=== PATIENT | female | born 1990 | race Caucasian/White ===

== ENCOUNTER → 2020-05-05 | Outpatient (REF) | payer OTHER ==
[~2020-05-05] MED LIST: ACET500T15 PO; COLA100C5 PO; IBUP-1114 PO; PRENTAB7 PO; ZOFR4TAB16 PO
== END ==
LOC: M LAB REF 12:37 → M LABDRWAD 12:37
PROVIDERS: ATTEND Physician Assistant
DX: N39.0 Urinary tract infection, site not specified (principal)

== ENCOUNTER 2020-05-17 11:52 | Emergency (ER) | payer OTHER ==
[~2020-05-17] VITALS: Ht 154.9 cm; Wt 41.4 kg
--- OUTSIDE RECORDS SUMMARY | 2020-05-17 12:02 | CCD | Continuity of Care Document ---
Author Author Ebony LAWSON Organization Unknown Address [address] [place] [address] [place] [address] Phone [phone] Care Team Providers Care Welder First Class Name Role Phone No PCP AUTM Unavailable Problems Description No Information Available Social History Type Date Description Comments Sex Unknown ETOH Use Rarely consumes alcohol Tobacco Use Start: Unknown Patient is a current smoker, smo kes every day Smoking Status Reviewed: 04/22/19 Patient is a current smoker, smokes every day Allergies, Adverse Reactions, Alerts Description No Known Drug Allergies Medications Active Medications SIG Qnty Indications Ordering Provide r Date Macrobid 100mg Capsules 1 cap by mouth twice a day for 5 days with food 10caps N39.0 Patel blackman JR., M.D. 05/05/2020 Immunizations Description No Information Available Vital Signs Date Vital Result Comment 05/05/2020 10:47am BP Systolic 110 mmHg BP Diastolic 70 mmHg Heart Rate 78 /min Respiratory Rate 16 /min O2 % BldC Oximetry 99 % Body Temperature 98.6 F Weight 105.00 lb Height 61 inches 5'1" BMI (Body Mass Index) 19.8 kg/m2 Pain Level 2 04/22/2019 12:00pm BP Systolic 100 mmHg BP Diastolic 69 mmHg Heart Rate 83 /min Respiratory Rate 12 /min O2 % BldC Oximetry 98 % Body Temperature 98.6 F Weight 108.00 lb Height 61 inches 5'1" BMI (Body Mass Index) 20.4 kg/m2 Pain Level 1 Results Test Acquired Date Facility Test Result H/L Range Note Laboratory test finding 05/05/2020 [facility] [address] [place], [place] [id number] [phone] Urine Culture <pending> Procedures Description No Information Available Medical Devices Description No Information Available Encounters Type Date Location Provider Dx Diagnosis Office Visit 05/05/2020 9:30a [facility] Omi Luciano. R10.9 Unspecified abdominal pain Z33.1 state, incidental N39.0 Urinary tract infection, sit e not specified Assessments Date Code Description Provider 05/05/2020 R10.9 Unspecified abdominal pain Moreno Lawson P.ADon 05/05/2020 Z33.1 state, incidental Moreno Lawson P.A. 05/05/2020 N39.0 Urinary tract infection, site no t specified Omi Luciano.Darell Plan of Treatment 05/05/2020 - Omi Luciano.A.* R10.9 Unspecified abdominal pain* New Labs:* HCG, Serum Quantitative, Ordered: 05/05/20 * Comments:* will treat possible UTI with macrobidsent for C&S pain is mild and intermittentconsistent with previous pregnancyI strongly recommend she report to ED for any new, worsneing or concerning abodminal pain while being Patient voiced understanding and agrees to treatment plan She should call and establish with OB * Z33.1 state, incidental* Comments:* given history of previous pregnancies with menses, will check quant. hcg today and notify of results * N39.0 Urinary tract infection, site not specified* New Medication:* Macrobid 100 mg - 1 cap by mouth twice a day for 5 days with food * Comments:* Supportive careIncrease fluidsUrine sent for C&S - will call as neededFollow with PCP Functional Status Description No Information Available Mental Status Description No Information Available Referrals Description No Information Available
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
--- OUTSIDE RECORDS SUMMARY | 2020-05-17 12:02 | CCD | Continuity of Care Document ---
Author Author Ebony LAWSON Organization Unknown Address [address] [place] [address] [place] [address] Phone [phone] Care Team Providers Care Elevator Worker Name Role Phone No PCP AUTM Unavailable [...] H/L Range Note Laboratory test finding 05/05/2020 [facility] [address] [place], [place] [id number] [phone] Urine Culture <pending> Procedures Description No Information [...]
--- OUTSIDE RECORDS SUMMARY | 2020-05-17 12:02 | CCD | Continuity of Care Document ---
Author Author Ebony LAWSON Organization Unknown Address [address] [place] [address] [place] [address] Phone [phone] Care Team Providers Care Personal Fitness Manager Name Role Phone No PCP AUTM Unavailable [...] H/L Range Note Laboratory test finding 05/05/2020 [facility] [address] [place] [address] [phone] Urine Culture FULL REPORT IN L <SEE NOTE> Normal 1 HCG, Serum Quantitative 3030 MIU/ML Normal 2 1 FULL REPORT IN LAB NOTES ( W and [facility]). NO GROWTH CLINICAL SIGNIFICANCE 1 ORGANISM 2 GESTATIONAL AGE APPROXIMATE HCG RANGE (MIU/ML) - [...] monitoring the treatment of cancer patients. Siemens Coinfloor methodology. Procedures Description No Information Available Medical Devices Description No Information Available Encounters Type Date Location Provider Dx Diagnosis Office Visit 05/05/2020 9:30a [facility] Omi Luciano R10.9 Unspecified abdominal pain Z33.1 state, incidental N39.0 Urinary tract infection, sit e not specified Assessments Date Code Description Provider 05/05/2020 R10.9 Unspecified abdominal pain Henrik Maldonado 05/05/2020 Z33.1 state, incidental Omi Maldonado.A. 05/05/2020 N39.0 Urinary tract infection, site no t specified Henrik Luciano Plan of Treatment 05/05/2020 - Henrik Luciano* R10.9 Unspecified abdominal pain* New Labs:* HCG, [...]
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
[2020-05-17] MEDS ORDERED: NS 1,000 ML IV ONE (13:45)
[2020-05-17] MEDS ORDERED: ONDANSETRON 4MG/2ML VIAL IV ONE (13:45)
[2020-05-17 14:00] LABS: BASO # 0.1 10^3/uL (0.0-0.2); BASO % 0.5 % (0.0-1.0); EOS % 0.3 % (0.0-3.0); HEMATOCRIT 38.5 % (36.0-47.0); HEMOGLOBIN 12.9 g/dl (12.0-15.5); LYMPH # 1.3 10^3/uL (1.5-5.0); MEAN CORPUSCULAR HEMOGLOBIN 31.2 pg (27.0-33.0); MEAN CORPUSCULAR HGB CONC 33.5 g/dl (32.0-36.5); MONO # 0.7 10^3/uL (0.0-0.8); MONO % 6.1 % (0.0-5.0); NEUTROPHILS # 9.5 10^3/uL (1.5-8.5); NEUTROPHILS % 81.8 % (36.0-66.0); PLATELET COUNT, AUTOMATED 291 10^3/uL (150-450); RED BLOOD COUNT 4.14 10^6/uL (4.00-5.40); WHITE BLOOD COUNT 11.6 10^3/uL (4.0-10.0)
--- NOTE | 2020-05-17 14:09 | REP ---
INDICATION: cramping LMP 04/04. COMPARISON: None. TECHNIQUE: Transabdominal scanning. FINDINGS: Scanning demonstrates a single living intrauterine gestation in a free-floating lie. The crown-rump length of the embryonic pole is 4 mm. This corresponds with a gestational age estimate is 6 weeks 1 day. heart rate is recorded at 126 beats per minute. There is a 2.8 cm cystic area in the maternal left ovary consistent with corpus luteum. A normal appearing yolk sac is visible. IMPRESSION: Viable single intrauterine gestation at 6 weeks 1 day by crown-rump length. ABDI by sonography 09 January 2021. No complication is seen. <Electronically signed by Jeancarlos Carey > 05/17/20 [id number]
[2020-05-17 14:46] LABS: BLOOD UREA NITROGEN 9 MG/DL (7-18); CALCIUM LEVEL 9.7 MG/DL (8.5-10.1); CARBON DIOXIDE LEVEL 26 MEQ/L (21-32); CHLORIDE LEVEL 102 MEQ/L (98-107); CREATININE FOR GFR 0.58 MG/DL (0.55-1.30); GLOMERULAR FILTRATION RATE > 60.0 (>60); GLUCOSE, FASTING 81 MG/DL (70-100); HCG, SERUM QUANTITATIVE 64608 MIU/ML; POTASSIUM SERUM 3.9 MEQ/L (3.5-5.1); SODIUM LEVEL 135 MEQ/L (136-145)
[2020-05-17] MEDS ORDERED: UNIS25TA3 PO (15:45)
[2020-05-17] MEDS ORDERED: PYRI25TA2 PO (15:45)
[2020-05-17] MEDS ORDERED: ONDA4TAB6 PO (15:45)
[2020-05-17 15:54] VITALS: BP 133/77
== END 2020-05-17 16:06 | disposition home or self-care (01) ==
LOC: M ED 11:52
DX: O21.1 Hyperemesis gravidarum with metabolic disturbance (principal); O99.331 Smoking (tobacco) complicating pregnancy, first trimester; Z3A.01 Less than 8 weeks gestation of pregnancy; Z91.040 Latex allergy status
CPT/HCPCS: 76801; 80048; 81001; 84702; 85025; 86901; 93976; 96361; 96374; 99284; J2405

== ENCOUNTER → 2020-06-06 | Outpatient (REF) | payer OTHER ==
[~2020-06-06] MED LIST changes: +ONDA4TAB6 PO; +PYRI25TA2 PO; +UNIS25TA3 PO
[2020-06-06 13:32] LABS: HEMATOCRIT 34.8 % (36.0-47.0); HEMOGLOBIN 11.1 g/dl (12.0-15.5); MEAN CORPUSCULAR HEMOGLOBIN 30.4 pg (27.0-33.0); MEAN CORPUSCULAR HGB CONC 31.9 g/dl (32.0-36.5); MEAN CORPUSCULAR VOLUME 95.3 fl (80.0-96.0); PLATELET COUNT, AUTOMATED 285 10^3/uL (150-450); RED BLOOD COUNT 3.65 10^6/uL (4.00-5.40); WHITE BLOOD COUNT 11.9 10^3/uL (4.0-10.0)
[2020-06-06 14:48] LABS: HEPATITIS C VIRUS ABY INDEX 0.1 INDEX (<0.8)
[2020-06-06 14:49] LABS: HIV 1&2 SCREEN CENTAUR NEGATIVE (NEGATIVE)
[2020-06-06 15:46] LABS: CHLAMYDIA DNA AMPLIFICATION NEGATIVE (NEGATIVE); GC DNA AMPLIFICATION NEGATIVE (NEGATIVE)
== END ==
LOC: M PLALAB 11:14
PROVIDERS: ATTEND Advanced Practice Midwife
DX: O21.0 Mild hyperemesis gravidarum (principal); Z3A.09 9 weeks gestation of pregnancy

== ENCOUNTER → 2020-08-31 | Outpatient (CLI) | payer OTHER ==
--- NOTE | 2020-08-31 15:52 | REP ---
INDICATION: ANATOMY COMPARISON: 05/17/2020 TECHNIQUE: Transabdominal obstetrical ultrasound with color Doppler evaluation. FINDINGS: Examination demonstrates a single live intrauterine in variable presentation. motion is identified by technologist. Placenta is noted anterior and grade 1 without evidence for placenta previa or abruption. Amniotic fluid volume is normal. Cervix measures 3.7 cm in length and appears closed.. Gestational age by LMP and 1st U/S 21 weeks 2 days with ABDI 01/09/2021. Gestational age by current measurements 21 weeks 3 days with ABDI 01/08/2021. FHR equals 149 beats per minute. Estimated weight 425 grams (53rdpercentile). Anatomical assessment demonstrates normal structures including cranium, choroid plexus, cavum, cerebellum/posterior fossa, facial features, lungs, four-chamber heart/ventricular outflow tracts, diaphragm, stomach, cord insertion/three-vessel cord, kidneys/bladder, spine, and extremities. IMPRESSION: Single live intrauterine in variable presentation demonstrating appropriate estimated weight. Anatomical assessment is complete and normal. No gross abnormalities are identified. <Electronically signed by Eagle Funes > 08/31/20 [id number]
== END ==
LOC: M WHC 12:43
PROVIDERS: ATTEND Advanced Practice Midwife
DX: Z34.82 Encounter for supervision of other normal pregnancy, second trimester (principal)

== ENCOUNTER → 2020-10-06 | Outpatient (CLI) | payer OTHER ==
[2020-10-06 12:42] LABS: HEMATOCRIT 35.9 % (36.0-47.0); HEMOGLOBIN 11.8 g/dl (12.0-15.5); MEAN CORPUSCULAR HGB CONC 32.9 g/dl (32.0-36.5); MEAN CORPUSCULAR VOLUME 97.3 fl (80.0-96.0); PLATELET COUNT, AUTOMATED 274 10^3/uL (150-450); RED BLOOD COUNT 3.69 10^6/uL (4.00-5.40); WHITE BLOOD COUNT 13.9 10^3/uL (4.0-10.0)
== END ==
LOC: M LAB 10:42
PROVIDERS: ATTEND Advanced Practice Midwife
DX: Z34.92 Encounter for supervision of normal pregnancy, unspecified, second trimester (principal)

== ENCOUNTER 2020-10-26 04:23 | Outpatient (CLI) | payer OTHER ==
[~2020-10-26] VITALS: Ht 154.9 cm; Wt 49.5 kg
[2020-10-26] VITALS (11 sets, daily range): BP systolic 112–142; BP diastolic 61–74
[2020-10-26] MEDS ORDERED: LR 1,000 ML IV SCH (05:10)
[2020-10-26] MEDS ORDERED: LACTATED RINGER'S 1000 ML IV ONE (05:10)
[2020-10-26 05:31] LABS: APPEARANCE, URINE CLEAR (CLEAR); BACTERIA, URINE AUTO NEGATIVE (NEGATIVE); BILIRUBIN, URINE AUTO NEGATIVE (NEGATIVE); BLOOD, URINE BLOOD 1+ (NEGATIVE); COLOR, URINE YELLOW (YELLOW); GLUCOSE, URINE (UA) AUTO NEGATIVE (NEGATIVE); KETONE, URINE AUTO 1+ mg/dL (NEGATIVE); LEUKOCYTE ESTERASE, URINE AUTO NEGATIVE (NEGATIVE); NITRITE, URINE AUTO NEGATIVE (NEGATIVE); PROTEIN, URINE AUTO NEGATIVE (NEGATIVE); RBC, URINE AUTO 4 /HPF (0-3); SPECIFIC GRAVITY URINE AUTO 1.015 (1.002-1.035); SQUAMOUS EPITHELIAL CELL UR AU 1 /HPF (0-6); UROBILINOGEN, URINE AUTO 0.2 mg/dL (0.0-2.0); WBC, URINE AUTO 1 /HPF (0-3)
[2020-10-26] MEDS ORDERED: TERBUTALINE SULFATE 1 MG/ML VIAL (J3105) SC STA ×2 (05:59→07:45)
[2020-10-26] MEDS ORDERED: ONDANSETRON 4MG/2ML VIAL IV PRN (07:45)
[2020-10-26] MEDS ORDERED: PERCOCET 5MG/325MG TAB PO ONE (08:40)
--- NOTE | 2020-10-26 09:56 | IPN ---
PROGRESS NOTE DATE: 10/26/2020 SUBJECTIVE: Ebony is a 30-year-old 2 para 1-0-0-1, 29 and 2 weeks gestation, EDC of 01/09/2021 based on last menstrual period and confirmed by first trimester ultrasound. She presents to Labor and Delivery today with a report of contractions since approximately 10 a.m. on 10/25/2020. She denies vaginal bleeding and leakage of fluid. The fetus has been active. Her care was [facility] at [facility] in the first trimester. course complicated by early hyperemesis, tobacco use at a half pack per day. OBSTETRIC HISTORY: December 2017; 39 weeks gestation, 6 pound, 5 ounce female, vaginal delivery, uncomplicated. OBSTETRIC LABS: Her obstetric labs have been normal. Antibody screen is negative. Blood type is A positive. Gonorrhea and chlamydia are negative. GDS 70. Rubella immune. Hepatitis B surface antigen negative. Hepatitis C negative. Syphilis non-reactive. HIV negative. GBS is unknown. PAST MEDICAL HISTORY: Asthma, pulmonary stenosis as a child. PAST SURGICAL HISTORY: Tonsils and adenoids. FAMILY HISTORY: Noncontributory. SOCIAL HISTORY: The patient is single. She is a stay at home mother. She is a smoker and reports a half a pack a day. Denies alcohol and drug use. No history of any sexually transmitted infections and denies a history of abuse, physical, sexual and emotional. ALLERGIES: Latex. CURRENT MEDICATIONS: vitamin. OBJECTIVE: BP is 120/68, pulse is 78. She is afebrile. She is alert and oriented x3. She does appear uncomfortable with contractions. The heart rate is 140 with moderate variability, appropriate for gestational age. Contractions are anywhere from 2 to 8 minutes apart and they palpate moderate. Sterile speculum exam obtained. Cervix appears closed. There is no vaginal bleeding or leakage of fluid. fibronectin and GBS obtained. Sterile vaginal exam: Fingertip thick, ballottable station, posterior. UA has returned 1+ ketones, 1+ leukocytes, 4 RBCs and her fibronectin is positive. ASSESSMENT: Intrauterine at 29 and 2/7th weeks, heart rate is appropriate for gestational age. Pre-term contractions. PLAN: IV hydration, terbutaline sub q. x one dose. Continue to observe at this time. We will recheck in a few hours.
== END 2020-10-26 11:15 | disposition home or self-care (01) ==
LOC: M LDO 04:23
PROVIDERS: ATTEND Advanced Practice Midwife
DX: O60.03 Preterm labor without delivery, third trimester (principal); Z3A.29 29 weeks gestation of pregnancy; O99.333 Smoking (tobacco) complicating pregnancy, third trimester; F17.210 Nicotine dependence, cigarettes, uncomplicated; Z91.040 Latex allergy status; Z79.899 Other long term (current) drug therapy
CPT/HCPCS: 81001; 82731; 87081; 87086; 96361; 96374; J2405; J3105

== ENCOUNTER 2020-10-26 16:39 | Outpatient (CLI) | payer OTHER ==
[~2020-10-26] VITALS: Ht 154.9 cm; Wt 50.0 kg
[2020-10-26] MEDS ORDERED: LACTATED RINGER'S 1000 ML IV STA (17:11)
[2020-10-26 17:15] VITALS: BP 120/79
[2020-10-26 17:40] LABS: HEMATOCRIT 34.5 % (36.0-47.0); HEMOGLOBIN 11.4 g/dl (12.0-15.5); MEAN CORPUSCULAR HEMOGLOBIN 31.4 pg (27.0-33.0); PLATELET COUNT, AUTOMATED 281 10^3/uL (150-450); RED BLOOD COUNT 3.63 10^6/uL (4.00-5.40); WHITE BLOOD COUNT 22.8 10^3/uL (4.0-10.0)
[2020-10-26 18:04] LABS: BLOOD UREA NITROGEN 3 MG/DL (7-18); CALCIUM LEVEL 9.2 MG/DL (8.5-10.1); CARBON DIOXIDE LEVEL 20 MEQ/L (21-32); CHLORIDE LEVEL 106 MEQ/L (98-107); CREATININE FOR GFR 0.38 MG/DL (0.55-1.30); GLOMERULAR FILTRATION RATE > 60.0 (>60); GLUCOSE, FASTING 80 MG/DL (70-100); POTASSIUM SERUM 3.6 MEQ/L (3.5-5.1); SODIUM LEVEL 137 MEQ/L (136-145)
[2020-10-26] MEDS ORDERED: TERBUTALINE SULFATE 1 MG/ML VIAL (J3105) SC ONE ×2 (18:35→23:35)
[2020-10-26] MEDS ORDERED: BETAMETHASONE SOLUSPAN 6MG/ML 5ML VIAL (J0702 PER 3MG) IM ONE (18:35)
[2020-10-26] MEDS ORDERED: PERCOCET 5MG/325MG TAB PO ONE (18:50)
[2020-10-26] MEDS: LR 1,000 ML IV SCH (19:06)
[2020-10-26] MEDS ORDERED: TERBUTALINE SULFATE 1 MG/ML VIAL (J3105) SC STA (19:38)
[2020-10-26 19:45] VITALS: BP 101/51
[2020-10-26 20:28] VITALS: BP 101/50
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
[2020-10-26 23:27] VITALS: BP 116/60
[2020-10-26 23:47] VITALS: BP 100/54
[2020-10-27] VITALS (11 sets, daily range): BP systolic 89–111; BP diastolic 51–62
[2020-10-27] MEDS: LR 1,000 ML IV SCH (02:55)
[2020-10-27] MEDS ORDERED: PROMETHAZINE INJ 25 MG/ML VIAL (J2550) IV ONE (03:35)
[2020-10-27] MEDS ORDERED: BUTORPHANOL 2 MG/ML INJ (J0595) IV ONE (03:35)
[2020-10-27 04:07] LABS: AMPHETAMINES LEVEL URINE NEGATIVE (NEGATIVE); BARBITURATES URINE NEGATIVE (NEGATIVE); BENZODIAZEPINES URINE NEGATIVE (NEGATIVE); CANNABINOIDS URINE POSITIVE (NEGATIVE); COCAINE METABOLITE URINE NEGATIVE (NEGATIVE); METHADONE URINE NEGATIVE (NEGATIVE); OPIATES URINE NEGATIVE (NEGATIVE); PHENCYCLIDINE URINE NEGATIVE (NEGATIVE)
[2020-10-27] MEDS ORDERED: ACETAMINOPHEN 500 MG TAB PO PRN (13:45)
[2020-10-27] MEDS ORDERED: BETAMETHASONE SOLUSPAN 6MG/ML 5ML VIAL (J0702 PER 3MG) IM ONE (15:05)
--- NOTE | 2020-10-27 15:14 | IPNPDOC ---
Text Note Date of Service The patient was seen on 10/27/20. NOTE Outpatient Pt feels more comfortable. States "cramps aren't like when I came in" Desires discharge home. Cat I tracing Mild UC not perceived regularly by patient Per consult Dr Venegas this am, OK to give betamethasone early. Reviewed rest at home, avoid strenuous activity. Reviewed after hours access, PTL, daily FKC, warnings Appt for next week with Dr Venegas, 10/30 @ 1130 VS,Marquisebonalicia, I+O VS, Marquisebone, I+O Laboratory Tests 10/26/20 17:23 Vital Signs Date Time Temp Pulse Resp B/P (MAP) Pulse Ox O2 Delivery O2 Flow Rate FiO2 10/27/20 11:26 99.0 92 18 97/57 (70) I&O- Last 24 Hours up to 6 AM0 10/27/20 06:00 Intake Total 3000 ml Balance 3000 ml Brianda Phillips CNM Oct 27, 2020 15:07
== END 2020-10-27 15:23 | disposition home or self-care (01) ==
LOC: M LDO 16:39
PROVIDERS: ATTEND Specialist
DX: O47.03 False labor before 37 completed weeks of gestation, third trimester (principal); Z3A.29 29 weeks gestation of pregnancy; O99.333 Smoking (tobacco) complicating pregnancy, third trimester; F17.210 Nicotine dependence, cigarettes, uncomplicated; Z91.040 Latex allergy status
CPT/HCPCS: 36415; 59025; 76816; 76820; 80048; 80307; 85027; 96360; 96361; 96372; 96374; 96375; J0595; J0702; J3105

== ENCOUNTER → 2020-11-15 | Outpatient (CLI) | payer OTHER ==
--- NOTE | 2020-11-15 15:19 | REP ---
INDICATION: UTERINE SIZE DATE DISCREPANCY/MAGGI. COMPARISON: Comparison sonography October 27, 2020.. TECHNIQUE: Transabdominal obstetric sonography. FINDINGS: Scanning through the gravid uterus demonstrates a viable single intrauterine gestation in breech lie. motion is observed and heart rate is recorded at 165 beats per minute. A anterior placenta is seen, grade 2, without evidence of placenta previa. Closed cervical length is measured at 4.1 cm transabdominally. No extrauterine abnormality is observed. Amniotic fluid is subjectively normal. MAGGI is normal 16.8 cm.. . Biometry chart: BPD 7.9 cm, 31 weeks 5 days Head circumference 29.6 cm, 32 weeks 5 days Abdominal circumference 28.2 cm, 32 weeks 2 days Femur length 6.2 cm, 32 weeks 1 day Humeral length 5.4 cm, 31 weeks 1 day HC AC ratio normal 1.05 Cephalic index normal 0.73 Estimated weight 1928 g, 4 lb 4 oz, 38th percentile for 32 weeks 2 days IMPRESSION: Viable single intrauterine gestation at 32 weeks 0 days by today's composite sonographic criteria. ABDI by today's sonography January 10, 2021. No complication identified. Expected gestational age estimate based on known ABDI of 08 January 2021 is 32 weeks 2 days. Appropriate interval growth. <Electronically signed by Jeancarlos Caery > 11/15/20 [id number]
== END ==
LOC: M WHC 12:55
PROVIDERS: ATTEND Advanced Practice Midwife
DX: O26.843 Uterine size-date discrepancy, third trimester (principal); Z3A.32 32 weeks gestation of pregnancy

== ENCOUNTER → 2020-12-08 | Outpatient (REF) | payer OTHER | LOC: M SFHCWAGY 10:10 | PROVIDERS: ATTEND Advanced Practice Midwife | DX: Z36.89 Encounter for other specified antenatal screening (principal); Z3A.00 Weeks of gestation of pregnancy not specified ==

== ENCOUNTER 2021-01-01 01:42 | Inpatient (IN) | payer OTHER ==
[~2021-01-01] VITALS: Ht 154.9 cm; Wt 51.3 kg
[2021-01-01] VITALS (7 sets, daily range): BP systolic 127–137; BP diastolic 72–91
[2021-01-01] MEDS ORDERED: ZOFR4TAB16 PO (02:01)
[2021-01-01] MEDS ORDERED: HOME MED LIST COMPLETE! XX SCH (02:05)
[2021-01-01] MEDS ORDERED: FENTANYL 2MCG/ML ROPIVACAINE 0.2% IN 0.9% NACL 100ML IVBAG As Ordered ONE (02:38)
[2021-01-01 02:40] LABS: HEMOGLOBIN 12.6 g/dl (12.0-15.5); MEAN CORPUSCULAR HGB CONC 34.1 g/dl (32.0-36.5); MEAN CORPUSCULAR VOLUME 93.9 fl (80.0-96.0); PLATELET COUNT, AUTOMATED 316 10^3/uL (150-450); RED BLOOD COUNT 3.94 10^6/uL (4.00-5.40); WHITE BLOOD COUNT 12.8 10^3/uL (4.0-10.0)
[2021-01-01] MEDS ORDERED: LR 1,000 ML IV SCH (02:55)
--- NOTE | 2021-01-01 03:01 | HPEPDOC ---
Obstetrical History & Physical General Date of Admission Jan 01, 2021 at 02:15 History of Present Illness 30yo at 38w6d with contraction. course complicated by hyperemesis, tobacco use contractions which she received betamethasone at 29 weeks Chief Complaint: Contractions, term Information Provided By: Patient Age: 30 : 2 Livin Care Care: Good Care Dating Final EDC: Jan 09, 2021 Final EDC by: LMP EGA at Admission: 38 Past Medical History Past Obstetrical History : Date of Delivery: Jan 03, 2018 Type of Delivery: Spontaneous Vaginal Del. Sex of : Female Complications: No Past Medical History Surgical History: Denies/None Social History Marital Status: Family situation: Spouse/partner home Psychosocial History: No pertinent psych hx * Smoker: current smoker Alcohol: Denies Drugs: marijuana Allergies Coded Allergies: latex (Verified Allergy, Unknown, skin irritation, 05/17/20) Medications Scheduled PRN Ondansetron HCl (Zofran) 4 Mg Tablet, 4 MG PO Q6-8HP PRN for nausea/vomiting Physical Examination Physical Examination GENERAL: Alert and oriented times three. BREAST: . ABDOMEN: Gravid and non-tender to touch. FETUS: Is vertex (VTX) by sterile vaginal examination (SVE), fetus is vertex (VTX) by Juan Diego. HEART RATE: Regular rate and rhythm. LUNGS: Clear to auscultation (CTA). Vital Signs/I&O Vital Signs Date Time Temp Pulse Resp B/P (MAP) Pulse Ox O2 Delivery O2 Flow Rate FiO2 01/01/21 02:07 98.3 96 20 133/83 (100) Laboratory Data 24H LABS Laboratory Tests 2 01/01/21 01:48: Nucleated Red Blood Cells % (auto) 0.0 01/01/21 02:18: Serology Scanned Report Hepatitis B Testing CBC/BMP Laboratory Tests 01/01/21 01:48 Pertinent Laboratoy Data Blood Type: A+ RBC Antibody Screen: Negative HIV: Negative Hepatitis B: Negative Hepatitis C: Negative Rapid Plasma Reagin: Nonreactive Rubella: Immune Chlamydia/Gonorrhea: Negative Group B Streptococcus: Negative Glucose Tolerance Test: 70 Anatomy Ultrasound Placenta Location: Anterior Normal Anatomy: No Placenta Previa: No Vaginal Examination Dilation: 3 cm Effacement: 70% Station: -1 Cervical Consistency: Soft Cervical Position: Anterior Presentation: Cephalic presentation Assessment Variability: Moderate Accelerations: Positive Tocometer Contractions: Yes Frequency: regular Assessment/Plan Assessment 30yo at 38w6d in active labor Reassuring status Plan Admit and orient. Simplex Operator and consent. Group B Streptococcus (GBS) negative. Labs and intravenous (IV) per unit protocol. Counseled on Pitocin and induction of labor (IOL). Anticipate normal spontaneous delivery (). C-S as appropriate. NICK BLAIR MD. Jan 01, 2021 03:00
[2021-01-01] MEDS ORDERED: OXYTOCIN 30 UNITS IN 0.9% NaCl 500ML IV BAG (J2590) As Ordered ONE (03:06)
[2021-01-01 03:26] LABS: CORD GAS ABE V -8.1; CORD GAS HCO3 V 19.5 MEQ/L; CORD GAS O2 SAT V 57.2 %; CORD GAS PCO2 V 47.6 mmHg; CORD GAS PH V 7.231 UNITS; CORD GAS PO2 V 25.3 mmHg; CORD GAS SBC V 17.1 MEQ/L
[2021-01-01 03:29] LABS: CORD GAS ABE A -11.2; CORD GAS HCO3 A 18.5 MEQ/L; CORD GAS O2 SAT A 50.4 %; CORD GAS PCO2 A 55.4 mmHg; CORD GAS PH A 7.142 UNITS; CORD GAS PO2 A 25.3 mmHg; CORD GAS SBC A 14.9 MEQ/L; CORD GAS TCO2 A 20.2 MEQ/L
[2021-01-01] MEDS ORDERED: RHOGAM 300 MCG (1500 IU) INJ (J2790) IM SCH (03:45)
[2021-01-01] MEDS ORDERED: IBUPROFEN 800 MG TAB PO PRN (03:45)
[2021-01-01] MEDS ORDERED: OXYTOCIN DRIP 30 UNITS in IV 1 EA IV SCH (03:45)
[2021-01-01] MEDS ORDERED: ACETAMINOPHEN TAB 650MG DOSE (2X325MG) PO PRN (03:45)
[2021-01-01] MEDS ORDERED: MOM 30ML SUSPENSION UDC PO PRN (03:45)
[2021-01-01] MEDS ORDERED: DIBUCAINE 1% OINTMENT 30GM TOP PRN (03:45)
[2021-01-01] MEDS ORDERED: IBUPROFEN 600MG TAB PO PRN (03:45)
[2021-01-01] MEDS ORDERED: METHYLERGONOVINE MALEATE 0.2 MG TAB PO PRN (03:45)
[2021-01-01] MEDS ORDERED: DOCUSATE SODIUM 100MG CAPSULE PO PRN (03:45)
[2021-01-01] MEDS ORDERED: MEASLES,MUMPS,RUBELLA VACCINE INJ (MMR-II) (90707) SC SCH (03:45)
--- NOTE | 2021-01-01 03:49 | DNPDOC ---
[facility] Delivery Note Delivery Note DATE OF DELIVERY: 01/01/2021 TIME OF : 0311 GENDER: Female APGARS: 9 and 9 WEIGHT: 2460 g or 5 lbs. 7 oz. LACERATIONS: none ANESTHESIA: none ESTIMATED BLOOD LOSS: 200 ml COUNTS: 5 laparotomy sponges accounted for prior to after delivery. 3 sharps removed from delivery field. MODE OF DELIVERY: Low vacuum-assisted vaginal delivery due to prolonged bradycardia DELIVERY NOTE: On 01/01/2021 at 0311 Mrs. Recio, a 30-year-old 2 now para 2 had a vacuum-assisted vaginal delivery of a liveborn female infant Apgars 9 and 9 weight was 2460 g or 5 lbs. 7 oz. Indication for operative delivery was bradycardia. There was approximately 11 minutes bradycardia with heart rate in the 60s. Patient was verbally consented for vacuum delivery vacuum was placed at +2 station and with 1 set of maternal pushing efforts, head was delivered occiput anterior (OA), followed by delivery of the shoulders and corpus. Infant was handed to mom with a good cry. Cord was clamped times two and was cut by support person under my direction. Placenta was then drained and delivered grossly intact. A premixed bag of 500 mL of normal saline with 30 units of Pitocin was then bolused along with uterine massage until the uterus was firm. On inspection , cervix, vagina, perineum was grossly intact and hemostatic. Mom and baby in recovery on stable condition. NICK BLAIR MD. Jan 01, 2021 03:49
[2021-01-01] MEDS ORDERED: ePHEDrine SULFATE 25 MG/5 ML(5MG/ML) SYRINGE IV PRN (04:00)
[2021-01-01] MEDS ORDERED: EPIDURAL COMMENT XX SCH (04:00)
[2021-01-01] MEDS ORDERED: diphenhydrAMINE 50MG/ML VIAL (J1200) IV PRN (04:00)
[2021-01-01] MEDS ORDERED: LACTATED RINGER'S 1000 ML IV PRN (04:00)
[2021-01-01] MEDS ORDERED: REFRIGERATOR IV KEYS XX PRN (04:00)
[2021-01-01] MEDS ORDERED: ONDANSETRON 4MG/2ML VIAL IV PRN (04:00)
[2021-01-01] MEDS ORDERED: EPIDURAL/PCA KEYS XX PRN (04:00)
[2021-01-01] MEDS ORDERED: FENTANYL/ROPIVACAINE/NACL BAG 100 ML EPIDURAL SCH (04:00)
[2021-01-01] MEDS ORDERED: NALOXONE INJ 0.4MG/1ML VIAL (J2310 PER 1MG) IV PRN (04:00)
[2021-01-01] MEDS: ACETAMINOPHEN 500 MG TAB PO PRN ×3 (06:39→21:25)
[2021-01-01] MEDS: PRENATAL VITAMINS CHEWABLE TABLET PO SCH (08:37)
[2021-01-02 05:40] VITALS: BP 136/95
[2021-01-02] MEDS: PRENATAL VITAMINS CHEWABLE TABLET PO SCH (08:26)
[2021-01-02] MEDS ORDERED: INFLUENZA QUADRIVALENT PF VACCINE 0.5ML SYRINGE IM ONE (09:00)
== END 2021-01-02 14:55 | disposition home or self-care (01) | DRG 560 ==
LOC: M LDO 01:42 → M LDI 02:15 → M OBS 06:12
PROVIDERS: ADMIT Obstetrics & Gynecology; ATTEND Obstetrics & Gynecology
PROC: 10D07Z6 Extraction of Products of Conception, Vacuum, Via Natural or Artificial Opening (ICD-10-PCS; principal; 2021-01-01)
DX: O99.334 Smoking (tobacco) complicating childbirth (principal); F17.210 Nicotine dependence, cigarettes, uncomplicated; Z3A.38 38 weeks gestation of pregnancy; Z37.0 Single live birth; O21.0 Mild hyperemesis gravidarum; O76 Abnormality in fetal heart rate and rhythm complicating labor and delivery

== ENCOUNTER → 2021-05-28 | Outpatient (CLI) | payer OTHER ==
[~2021-05-28] MED LIST changes: +VENTAER INH
== END ==
LOC: M LABSMTC 09:44
PROVIDERS: ATTEND Anesthesiology
DX: Z01.812 Encounter for preprocedural laboratory examination (principal); Z20.822 Contact with and (suspected) exposure to COVID-19

== ENCOUNTER 2021-06-01 10:26 | Day surgery (SDC) | payer OTHER ==
[~2021-06-01] VITALS: Ht 154.9 cm; Wt 43.5 kg
[~2021-06-01 10:26] MED LIST changes: +LIDOCAINE 1% MDV 20ML VIAL SQ PRN; +LR 1,000 ML IV ONE
[2021-06-01 11:11] LABS: HEMATOCRIT 42.8 % (36.0-47.0); HEMOGLOBIN 13.4 g/dl (12.0-15.5); MEAN CORPUSCULAR HEMOGLOBIN 30.3 pg (27.0-33.0); MEAN CORPUSCULAR HGB CONC 31.3 g/dl (32.0-36.5); MEAN CORPUSCULAR VOLUME 96.8 fl (80.0-96.0); PLATELET COUNT, AUTOMATED 273 10^3/uL (150-450); RED BLOOD COUNT 4.42 10^6/uL (4.00-5.40)
[2021-06-01] MEDS ORDERED: SCOPOLAMINE 1MG TRANSDERMAL PATCH TOP ONE (11:30)
[2021-06-01] MEDS ORDERED: ACETAMINOPHEN 1000MG 100ML IV BTL (OFIRMEV) (J0131 PER 10MG) As Ordered ONE (12:15)
[2021-06-01] MEDS ORDERED: BUPIVACAINE HCL 0.25% 30ML VIAL As Ordered ONE (12:26)
[2021-06-01] MEDS ORDERED: SCOPOLAMINE 1MG TRANSDERMAL PATCH As Ordered ONE (12:28)
[2021-06-01] MEDS ORDERED: LIDOCAINE 2% 100MG/5ML SDV (FOR ANES.) As Ordered ONE (12:50)
[2021-06-01] MEDS ORDERED: propofoL 200 MG/20 ML VIAL As Ordered ONE (12:50)
[2021-06-01] MEDS ORDERED: dexameTHASONE 4 MG/ML 1ML VIAL (J1100 PER 1MG) As Ordered ONE (12:51)
[2021-06-01] MEDS ORDERED: ONDANSETRON 4MG/2ML VIAL As Ordered ONE (12:51)
[2021-06-01] MEDS ORDERED: MIDAZOLAM INJ 2MG/2ML VIAL (J2250 PER 1MG) As Ordered ONE (12:51)
[2021-06-01] MEDS ORDERED: fentaNYL 100 MCG/2 ML INJECTION As Ordered ONE (12:51)
[2021-06-01] MEDS ORDERED: ROCURONIUM BROMIDE 50 MG/5 ML VIAL As Ordered ONE (12:51)
[2021-06-01] MEDS ORDERED: LR 1,000 ML IV SCH (13:10)
[2021-06-01] MEDS ORDERED: fentaNYL 100 MCG/2 ML INJECTION IV PRN (13:10)
[2021-06-01] MEDS ORDERED: ONDANSETRON 4MG/2ML VIAL IV PRN (13:10)
[2021-06-01] MEDS ORDERED: oxyCODONE 5MG TAB PO PRN (13:10)
[2021-06-01 13:45] VITALS: BP 112/67
[2021-06-01] MEDS ORDERED: SUGAMMADEX SODIUM 500 MG/5 ML VIAL (BRIDION) As Ordered ONE (13:57)
[2021-06-01] MEDS ORDERED: KETOROLAC 60MG 2ML VIAL As Ordered ONE (13:57)
[2021-06-01] MEDS ORDERED: KETOROLAC 30 MG/ML 1ML VIAL IV SCH (18:00)
== END 2021-06-01 14:33 | disposition home or self-care (01) ==
LOC: M SDC 10:26
PROVIDERS: ATTEND Obstetrics & Gynecology
DX: Z30.2 Encounter for sterilization (principal); N89.8 Other specified noninflammatory disorders of vagina; Z91.040 Latex allergy status; F17.218 Nicotine dependence, cigarettes, with other nicotine-induced disorders; F12.10 Cannabis abuse, uncomplicated; Z79.51 Long term (current) use of inhaled steroids
CPT/HCPCS: 36415; 57130; 58661; 81025; 85027; 86850; 86900; 86901; 88302; J0131; J1100; J1885; J2250; J2405; J3010

== ENCOUNTER → 2023-03-25 | Outpatient (REF) | payer OTHER ==
[~2023-03-25] MED LIST changes: -LIDOCAINE 1% MDV 20ML VIAL SQ PRN; -LR 1,000 ML IV ONE
== END ==
LOC: M SFHCWAGY 13:31
PROVIDERS: ATTEND Obstetrics & Gynecology
DX: Z12.4 Encounter for screening for malignant neoplasm of cervix (principal); R87.610 Atypical squamous cells of undetermined significance on cytologic smear of cervix (ASC-US)

== ENCOUNTER → 2023-04-08 | Outpatient (CLI) | payer MEDICAID | LOC: M WHC 13:12 | PROVIDERS: ATTEND Obstetrics & Gynecology | DX: N63.20 Unspecified lump in the left breast, unspecified quadrant (principal); R92.343 Mammographic extreme density, bilateral breasts ==

== ENCOUNTER → 2023-05-15 | Outpatient (REF) | payer MEDICAID, OTHER | LOC: M SFHCWAGY 15:14 | PROVIDERS: ATTEND Obstetrics & Gynecology | DX: R30.0 Dysuria (principal); R87.610 Atypical squamous cells of undetermined significance on cytologic smear of cervix (ASC-US) ==

== ENCOUNTER → 2024-05-19 | Outpatient (REF) | payer OTHER ==
[~2024-05-19] MED LIST changes: +ONDA-282 PO; -ONDA4TAB6 PO
[2024-05-22 16:36] LABS: HPV APTIMA Detected (Not Detected)
== END ==
LOC: M SFHCWAGY 12:28
PROVIDERS: ATTEND Obstetrics & Gynecology
DX: Z12.4 Encounter for screening for malignant neoplasm of cervix (principal); R87.612 Low grade squamous intraepithelial lesion on cytologic smear of cervix (LGSIL)